=== PATIENT | female | born 2000 | race Caucasian/White ===

== ENCOUNTER 2023-03-13 17:55 | Emergency (ER) | payer MEDICAID ==
[~2023-03-13] VITALS: Ht 160 cm; Wt 77.0 kg
[2023-03-13 18:33] VITALS: BP 136/78; PULSE 94; RESP 17; TEMP 98.3; O2SAT 100
[2023-03-13] MEDS ORDERED: NAPR-56 PO (19:54)
--- NOTE | 2023-03-13 20:00 | NUR ---
I have reviewed and agree with all interventions, assessments performed and documented by jose obrien
== END 2023-03-13 20:03 | disposition home or self-care (01) ==
LOC: ER 17:56
DX: M79.89 Other specified soft tissue disorders (principal); M79.642 Pain in left hand; Z88.5 Allergy status to narcotic agent; Z88.0 Allergy status to penicillin
CPT/HCPCS: 99282

== ENCOUNTER 2023-03-23 21:06 | Emergency (ER) | payer MEDICAID ==
[~2023-03-23] VITALS: Ht 160 cm; Wt 79.5 kg
[~2023-03-23 21:06] MED LIST: NAPR-56 PO
[2023-03-23 22:24] LABS: URINE HCG NEGATIVE (NEG)
[2023-03-23] MEDS ORDERED: CLIN150C2 PO (22:32)
[2023-03-23] MEDS ORDERED: NEOM10DR45 LEFT EAR (22:49)
[2023-03-23] MEDS ORDERED: HYDR-3965 PO (22:49)
[2023-03-23 22:58] VITALS: BP 124/79; PULSE 88; RESP 16; TEMP 98.6; O2SAT 99
== END 2023-03-23 23:00 | disposition home or self-care (01) ==
LOC: ER 21:06
DX: H60.8X2 Other otitis externa, left ear (principal)
CPT/HCPCS: 81025; 99283

== ENCOUNTER 2023-03-31 18:18 | Emergency (ER) | payer MEDICAID ==
[~2023-03-31] VITALS: Ht 160 cm; Wt 68.2 kg
[~2023-03-31 18:18] MED LIST changes: +CLIN150C2 PO; +HYDR-3965 PO; +NEOM10DR45 LEFT EAR
[2023-03-31 19:07] VITALS: BP 125/82; PULSE 86; TEMP 98.5; O2SAT 99
[2023-03-31] MEDS ORDERED: ketorolac trometh. 30mg/ml inj. IM ONE (19:50)
[2023-03-31 20:06] VITALS: RESP 18
[2023-03-31] MEDS ORDERED: CIPR10DR LEFT EAR (20:06)
[2023-03-31] MEDS ORDERED: CLIN150C2 PO (20:06)
[2023-03-31] MEDS ORDERED: IBUP-1984 PO (20:06)
[2023-03-31] MEDS ORDERED: OMEP40CA21 PO (20:13)
== END 2023-03-31 20:41 | disposition home or self-care (01) ==
LOC: ER 18:19
DX: H60.92 Unspecified otitis externa, left ear (principal); Z88.8 Allergy status to other drugs, medicaments and biological substances; Z88.0 Allergy status to penicillin; Z79.2 Long term (current) use of antibiotics; Z79.1 Long term (current) use of non-steroidal anti-inflammatories (NSAID); Z79.899 Other long term (current) drug therapy
CPT/HCPCS: 96372; 99283; J1885

== ENCOUNTER 2023-05-13 18:33 | Emergency (ER) | payer MEDICAID ==
[~2023-05-13] VITALS: Ht 160 cm; Wt 82.3 kg
[~2023-05-13 18:33] MED LIST changes: -CLIN150C2 PO; -HYDR-3965 PO; -NAPR-56 PO
[2023-05-13 18:53] VITALS: BP 127/86; PULSE 99; RESP 17; TEMP 98.8; O2SAT 99
== END 2023-05-14 03:15 | disposition left against medical advice (07) ==
LOC: ER 18:34
DX: R05.9 Cough, unspecified (principal); Z53.21 Procedure and treatment not carried out due to patient leaving prior to being seen by health care provider
CPT/HCPCS: 99281

== ENCOUNTER 2023-06-27 10:10 | Emergency (ER) | payer MEDICAID ==
[~2023-06-27] VITALS: Ht 160 cm; Wt 85.4 kg
[2023-06-27 10:31] VITALS: TEMP 99.5
[2023-06-27 10:48] VITALS: BP 136/83; PULSE 103; RESP 16; O2SAT 98
[2023-06-27 11:22] LABS: STREP A SCREEN NEGATIVE (Neg)
== END 2023-06-27 12:33 | disposition home or self-care (01) ==
LOC: ER 10:10
DX: J02.9 Acute pharyngitis, unspecified (principal); Z88.8 Allergy status to other drugs, medicaments and biological substances; Z79.899 Other long term (current) drug therapy; Z88.5 Allergy status to narcotic agent; Z88.1 Allergy status to other antibiotic agents
CPT/HCPCS: 87081; 87880; 99283

== ENCOUNTER 2023-07-24 16:50 | Emergency (ER) | payer MEDICAID ==
[~2023-07-24] VITALS: Ht 160 cm; Wt 65.9 kg
[2023-07-24 17:14] VITALS: BP 139/75; PULSE 94; RESP 18; O2SAT 99
[2023-07-24] MEDS ORDERED: DIF150T PO (18:08)
[2023-07-24 18:16] VITALS: TEMP 97
== END 2023-07-24 18:17 | disposition home or self-care (01) ==
LOC: ER 16:51
DX: B37.31 Acute candidiasis of vulva and vagina (principal); Z88.5 Allergy status to narcotic agent; Z88.0 Allergy status to penicillin; Z79.899 Other long term (current) drug therapy; Z88.1 Allergy status to other antibiotic agents; Z79.2 Long term (current) use of antibiotics
CPT/HCPCS: 99283

== ENCOUNTER 2023-08-27 16:20 | Emergency (ER) | payer MEDICAID ==
[~2023-08-27] VITALS: Ht 160 cm; Wt 68.2 kg
[2023-08-27 16:48] LABS: BILIRUBIN,URINE NEGATIVE (Neg); CLARITY,URINE SLIGHTLY CLOUDY (Clear); COLOR,URINE YELLOW (Yellow); GLUCOSE, URINE NEGATIVE (Neg); KETONES,URINE NEGATIVE (Neg); LEUKOCYTE ESTERASE ,URINE NEGATIVE (Neg); NITRITES, URINE NEGATIVE (Neg); OCCULT BLOOD,URINE NEGATIVE (Neg); PH,URINE 6.5 (4.8-8.0); PROTEIN,URINE NEGATIVE (Neg); UROBILINOGEN,URINE 0.2 E.U/dL (0.2-1.0)
[2023-08-27 16:51] LABS: UA COLLECTION TYPE CLN CATCH MIDSTREAM
[2023-08-27 16:55] LABS: URINE HCG NEGATIVE (NEG)
[2023-08-27] MEDS ORDERED: ketorolac trometh inj. 60 MG/2 ML VIAL IM ONE (16:55)
[2023-08-27 17:03] LABS: BACTERIA,URINE 1+ /HPF (Neg); RBC,URINE NONE SEEN /HPF (0-2); SQUAMOUS EPITHELIAL CELL,UR MANY /LPF (FEW); WBC,URINE 0-4 /HPF (0-4)
[2023-08-27] MEDS: ketorolac tromethamine 15mg/ml inj. IM ONE (17:33)
[2023-08-27] MEDS: ondansetron 4mg rapidly disintigrating tab PO ONE (17:34)
[2023-08-27 19:08] LABS: RED CELL DISTRIBUTION WIDTH 13.4 % (11.5-14.5)
[2023-08-27 19:10] LABS: BASOPHILS % (AUTO) 0.4 % (0-1); EOSINOPHILS # (AUTO) 0.2 X10'3 (0-0.9); EOSINOPHILS % (AUTO) 1.5 % (0-6); HEMATOCRIT 42.1 % (35.0-45.0); HEMOGLOBIN 13.7 g/dl (12.0-16.0); LYMPHOCYTES # (AUTO) 2.9 X10'3 (1.1-4.8); LYMPHOCYTES % (AUTO) 25.1 % (21-51); MEAN CORPUSCULAR HEMOGLOBIN 28.6 PG (27.0-31.0); MEAN CORPUSCULAR HGB CONC 32.7 g/dL (33.0-36.5); MEAN CORPUSCULAR VOLUME 87.5 FL (78-98); MEAN PLATELET VOLUME 7.6 FL (7.4-10.4); MONOCYTES # (AUTO) 0.8 X10'3 (0-0.9); MONOCYTES % (AUTO) 6.7 % (2-12); NEUTROPHILS # (AUTO) 7.6 X10'3 (1.8-7.7); NEUTROPHILS % (AUTO) 66.3 % (42-75); PLATELET COUNT 367 X10'3 (140-440); RED BLOOD COUNT 4.81 X10'6 (4.20-5.60); WHITE BLOOD COUNT 11.4 X10'3 (4.5-11.0)
[2023-08-27 19:23] LABS: ALANINE AMINOTRANSFERASE 27 U/L (12-78); ALBUMIN/GLOBULIN RATIO 0.9 (1.1-1.5); ALKALINE PHOSPHATASE 99 IU/L (46-116); ANION GAP 8 (8-16); ASPARTATE AMINO TRANSFERASE 18 U/L (10-37); BILIRUBIN,TOTAL 0.3 MG/DL (0.1-1.0); BLOOD UREA NITROGEN 10 MG/DL (7-18); CALCIUM 8.1 MG/DL (8.5-10.1); CHLORIDE 99 MMOL/L (99-107); CREATININE 0.83 MG/DL (0.40-0.90); GLUCOSE 85 MG/DL (70-104); POTASSIUM 3.8 MMOL/L (3.5-5.1); SODIUM 133 MMOL/L (135-145); TOTAL CARBON DIOXIDE 26.1 MMOL/L (24-32); TOTAL PROTEIN 8.7 G/DL (6.4-8.2); eCRCL 88 ML/MIN; eGFR 86 ML/MIN
[2023-08-27] MEDS ORDERED: IBUP-1984 PO (19:35)
[2023-08-27] MEDS ORDERED: CYCL-1 PO (19:35)
[2023-08-27 19:55] VITALS: BP 122/87; PULSE 86; RESP 16; TEMP 98.2; O2SAT 100
== END 2023-08-27 19:58 | disposition home or self-care (01) ==
LOC: ER 16:21
DX: R91.1 Solitary pulmonary nodule (principal); R10.9 Unspecified abdominal pain; Z90.49 Acquired absence of other specified parts of digestive tract; Z98.890 Other specified postprocedural states; Z88.1 Allergy status to other antibiotic agents; Z88.0 Allergy status to penicillin; Z88.5 Allergy status to narcotic agent; Z79.899 Other long term (current) drug therapy; Z79.1 Long term (current) use of non-steroidal anti-inflammatories (NSAID)
CPT/HCPCS: 36415; 74176; 80053; 81001; 81025; 85025; 99284; J1885

== ENCOUNTER 2023-09-01 13:14 | Emergency (ER) | payer MEDICAID ==
[~2023-09-01] VITALS: Ht 160 cm; Wt 90.8 kg
[~2023-09-01 13:14] MED LIST changes: +CYCL-1 PO; +IBUP-1984 PO
[2023-09-01 13:24] VITALS: TEMP 98
[2023-09-01 16:09] LABS: BASOPHILS % (AUTO) 0.4 % (0-1); EOSINOPHILS # (AUTO) 0.2 X10'3 (0-0.9); EOSINOPHILS % (AUTO) 1.8 % (0-6); HEMATOCRIT 39.9 % (35.0-45.0); HEMOGLOBIN 13.1 g/dl (12.0-16.0); MEAN CORPUSCULAR HEMOGLOBIN 28.9 PG (27.0-31.0); MEAN CORPUSCULAR HGB CONC 32.8 g/dL (33.0-36.5); MEAN CORPUSCULAR VOLUME 88.1 FL (78-98); MEAN PLATELET VOLUME 7.4 FL (7.4-10.4); MONOCYTES # (AUTO) 0.7 X10'3 (0-0.9); MONOCYTES % (AUTO) 6.9 % (2-12); NEUTROPHILS # (AUTO) 7.2 X10'3 (1.8-7.7); NEUTROPHILS % (AUTO) 70.9 % (42-75); PLATELET COUNT 322 X10'3 (140-440); RED BLOOD COUNT 4.53 X10'6 (4.20-5.60); RED CELL DISTRIBUTION WIDTH 13.3 % (11.5-14.5); WHITE BLOOD COUNT 10.2 X10'3 (4.5-11.0)
[2023-09-01 16:42] LABS: HCG SERUM QL NEGATIVE
[2023-09-01 16:47] LABS: ALBUMIN 3.6 G/DL (3.4-5.0); ANION GAP 10 (8-16); BLOOD UREA NITROGEN 11 MG/DL (7-18); BUN/CREATININE RATIO 12.4 (10.0-20.0); CALCIUM 8.5 MG/DL (8.5-10.1); CHLORIDE 104 MMOL/L (99-107); CREATININE 0.89 MG/DL (0.40-0.90); GLUCOSE 99 MG/DL (70-104); POTASSIUM 4.4 MMOL/L (3.5-5.1); PRO BRAIN NATRIURETIC PEPTIDE 52 PG/ML (0-125); SODIUM 139 MMOL/L (135-145); TOTAL CARBON DIOXIDE 25.5 MMOL/L (24-32); eCRCL 82 ML/MIN; eGFR 79 ML/MIN
[2023-09-01] MEDS ORDERED: iohexol 350MG/ML 100ml bottle IV ONE (16:54)
[2023-09-01 17:13] VITALS: BP 117/76; PULSE 84; RESP 16; O2SAT 98
== END 2023-09-01 18:45 | disposition home or self-care (01) ==
LOC: ER 13:14
DX: R04.2 Hemoptysis (principal); Z88.0 Allergy status to penicillin; Z88.1 Allergy status to other antibiotic agents; Z88.5 Allergy status to narcotic agent; Z79.899 Other long term (current) drug therapy; Z98.890 Other specified postprocedural states; Z90.49 Acquired absence of other specified parts of digestive tract
CPT/HCPCS: 36415; 71045; 71275; 80048; 83880; 84484; 84703; 85025; 99285; J3490; Q9967

== ENCOUNTER 2023-09-15 16:40 | Emergency (ER) | payer MEDICAID ==
[~2023-09-15] VITALS: Ht 160 cm; Wt 89.3 kg
[~2023-09-15 16:40] MED LIST changes: -IBUP-1984 PO
[2023-09-15 17:24] LABS: BASOPHILS # (AUTO) 0.2 X10'3 (0-0.2); BASOPHILS % (AUTO) 1.4 % (0-1); EOSINOPHILS # (AUTO) 0.1 X10'3 (0-0.9); HEMOGLOBIN 13.1 g/dl (12.0-16.0); LYMPHOCYTES # (AUTO) 2.1 X10'3 (1.1-4.8); LYMPHOCYTES % (AUTO) 18.5 % (21-51); MEAN CORPUSCULAR HEMOGLOBIN 28.6 PG (27.0-31.0); MEAN CORPUSCULAR HGB CONC 32.7 g/dL (33.0-36.5); MEAN CORPUSCULAR VOLUME 87.4 FL (78-98); MEAN PLATELET VOLUME 7.6 FL (7.4-10.4); MONOCYTES # (AUTO) 0.6 X10'3 (0-0.9); MONOCYTES % (AUTO) 5.5 % (2-12); NEUTROPHILS # (AUTO) 8.4 X10'3 (1.8-7.7); NEUTROPHILS % (AUTO) 73.6 % (42-75); PLATELET COUNT 384 X10'3 (140-440); RED BLOOD COUNT 4.57 X10'6 (4.20-5.60); WHITE BLOOD COUNT 11.5 X10'3 (4.5-11.0)
[2023-09-15 17:31] LABS: ALBUMIN 3.9 G/DL (3.4-5.0); ANION GAP 12 (8-16); BLOOD UREA NITROGEN 15 MG/DL (7-18); BUN/CREATININE RATIO 15.3 (10.0-20.0); CALCIUM 8.8 MG/DL (8.5-10.1); CHLORIDE 103 MMOL/L (99-107); CREATININE 0.98 MG/DL (0.40-0.90); GLUCOSE 105 MG/DL (70-104); POTASSIUM 4.1 MMOL/L (3.5-5.1); SODIUM 140 MMOL/L (135-145); TOTAL CARBON DIOXIDE 25.5 MMOL/L (24-32); eCRCL 74 ML/MIN; eGFR 71 ML/MIN
[2023-09-15 17:35] LABS: APTT 25 SECONDS (22-32); INR 1.1 INR; PROTHROMBIN TIME 11.4 SECONDS (9.0-12.0)
[2023-09-15 18:40] VITALS: BP 138/88; PULSE 89; RESP 13; TEMP 97; O2SAT 97
== END 2023-09-15 19:24 | disposition home or self-care (01) ==
LOC: ER 16:41
DX: K92.2 Gastrointestinal hemorrhage, unspecified (principal); Z88.1 Allergy status to other antibiotic agents; Z88.0 Allergy status to penicillin; Z88.5 Allergy status to narcotic agent; Z79.899 Other long term (current) drug therapy; Z79.2 Long term (current) use of antibiotics; Z90.49 Acquired absence of other specified parts of digestive tract; Z98.890 Other specified postprocedural states
CPT/HCPCS: 36415; 71045; 80048; 85025; 85610; 85730; 86885; 86900; 86901; 93005; 99285

== ENCOUNTER 2023-10-23 09:52 | Emergency (ER) | payer MEDICAID ==
[~2023-10-23] VITALS: Ht 160 cm; Wt 91.8 kg
[2023-10-23 10:05] VITALS: BP 131/81; PULSE 96; RESP 16; TEMP 98.5; O2SAT 97
[2023-10-23 13:13] LABS: URINE HCG NEGATIVE (NEG)
[2023-10-23 13:14] LABS: BILIRUBIN,URINE NEGATIVE (Neg); CLARITY,URINE CLOUDY (Clear); COLOR,URINE YELLOW (Yellow); GLUCOSE, URINE NEGATIVE (Neg); KETONES,URINE NEGATIVE (Neg); LEUKOCYTE ESTERASE ,URINE NEGATIVE (Neg); NITRITES, URINE NEGATIVE (Neg); OCCULT BLOOD,URINE NEGATIVE (Neg); PH,URINE 5.5 (4.8-8.0); PROTEIN,URINE NEGATIVE (Neg); UROBILINOGEN,URINE 0.2 E.U/dL (0.2-1.0)
[2023-10-23 13:17] LABS: UA COLLECTION TYPE CLN CATCH MIDSTREAM
[2023-10-23] MEDS ORDERED: ADV50250 IH (13:21)
[2023-10-23] MEDS ORDERED: ALBU8HFA INH (13:36)
[2023-10-23 13:40] LABS: RBC,URINE 0-2 /HPF (0-2); SQUAMOUS EPITHELIAL CELL,UR MODERATE /LPF (FEW); WBC,URINE NONE SEEN /HPF (0-4)
[2023-10-23 13:47] LABS: AMORPHOUS URATES 4+; BACTERIA,URINE 2+ /HPF (Neg)
[2023-10-23] MEDS: fluconazole 100mg tablet PO ONE (14:02)
[2023-10-23] MEDS: albuterol 2.5 MG/3 ML nebule NEB ONE (14:04)
== END 2023-10-23 14:20 | disposition home or self-care (01) ==
LOC: ER 09:53
DX: B37.31 Acute candidiasis of vulva and vagina (principal); J45.901 Unspecified asthma with (acute) exacerbation; Z88.0 Allergy status to penicillin; Z88.1 Allergy status to other antibiotic agents; Z88.5 Allergy status to narcotic agent; Z79.899 Other long term (current) drug therapy; Z98.890 Other specified postprocedural states; Z90.49 Acquired absence of other specified parts of digestive tract
CPT/HCPCS: 81001; 81025; 99283

== ENCOUNTER 2023-11-09 22:08 | Emergency (ER) | payer MEDICAID ==
[~2023-11-09] VITALS: Ht 160 cm; Wt 92.3 kg
[~2023-11-09 22:08] MED LIST changes: +ALBU8HFA INH
[2023-11-09 22:12] VITALS: BP 147/90; PULSE 102; RESP 16; O2SAT 96
[2023-11-09 22:36] LABS: BASOPHILS # (AUTO) 0.1 X10'3 (0-0.2); EOSINOPHILS # (AUTO) 0.2 X10'3 (0-0.9); EOSINOPHILS % (AUTO) 1.6 % (0-6); HEMATOCRIT 39.1 % (35.0-45.0); HEMOGLOBIN 13.2 g/dl (12.0-16.0); LYMPHOCYTES # (AUTO) 3.6 X10'3 (1.1-4.8); LYMPHOCYTES % (AUTO) 28.8 % (21-51); MEAN CORPUSCULAR HEMOGLOBIN 28.9 PG (27.0-31.0); MEAN CORPUSCULAR HGB CONC 33.7 g/dL (33.0-36.5); MEAN CORPUSCULAR VOLUME 85.9 FL (78-98); MEAN PLATELET VOLUME 7.2 FL (7.4-10.4); MONOCYTES # (AUTO) 0.8 X10'3 (0-0.9); MONOCYTES % (AUTO) 6.3 % (2-12); NEUTROPHILS # (AUTO) 7.8 X10'3 (1.8-7.7); NEUTROPHILS % (AUTO) 62.3 % (42-75); PLATELET COUNT 360 X10'3 (140-440); RED BLOOD COUNT 4.56 X10'6 (4.20-5.60); RED CELL DISTRIBUTION WIDTH 12.9 % (11.5-14.5); WHITE BLOOD COUNT 12.5 X10'3 (4.5-11.0)
[2023-11-09 22:37] LABS: BILIRUBIN,URINE NEGATIVE (Neg); CLARITY,URINE SLIGHTLY CLOUDY (Clear); COLOR,URINE YELLOW (Yellow); GLUCOSE, URINE NEGATIVE (Neg); KETONES,URINE NEGATIVE (Neg); LEUKOCYTE ESTERASE ,URINE NEGATIVE (Neg); NITRITES, URINE NEGATIVE (Neg); OCCULT BLOOD,URINE NEGATIVE (Neg); PROTEIN,URINE NEGATIVE (Neg); UROBILINOGEN,URINE 0.2 E.U/dL (0.2-1.0)
[2023-11-09 22:39] LABS: UA COLLECTION TYPE NON-SPECIFIED; URINE HCG NEGATIVE (NEG)
[2023-11-09 22:47] LABS: ANION GAP 10 (8-16); BLOOD UREA NITROGEN 18 MG/DL (7-18); BUN/CREATININE RATIO 21.7 (10.0-20.0); CALCIUM 9.1 MG/DL (8.5-10.1); CHLORIDE 101 MMOL/L (99-107); CREATININE 0.83 MG/DL (0.40-0.90); GLUCOSE 116 MG/DL (70-104); LIPASE 34 U/L (16-77); POTASSIUM 3.8 MMOL/L (3.5-5.1); SODIUM 137 MMOL/L (135-145); eCRCL 88 ML/MIN; eGFR 86 ML/MIN
[2023-11-09 22:59] LABS: MUCUS STRANDS NONE SEEN /LPF (Neg); SQUAMOUS EPITHELIAL CELL,UR MANY /LPF (FEW)
[2023-11-09 23:00] LABS: BACTERIA,URINE FEW /HPF (Neg); RBC,URINE 0-2 /HPF (0-2); WBC,URINE 0-4 /HPF (0-4)
[2023-11-09 23:01] LABS: SPERM FEW /HPF
== END 2023-11-10 02:36 | disposition left against medical advice (07) ==
LOC: ER 22:09
DX: R11.2 Nausea with vomiting, unspecified (principal); R19.7 Diarrhea, unspecified; R10.11 Right upper quadrant pain; Z53.21 Procedure and treatment not carried out due to patient leaving prior to being seen by health care provider
CPT/HCPCS: 36415; 80048; 81001; 81025; 83690; 85025

== ENCOUNTER 2023-12-04 16:26 | Emergency (ER) | payer MEDICAID ==
[~2023-12-04] VITALS: Ht 160 cm; Wt 77.3 kg
[~2023-12-04 16:26] MED LIST changes: -ALBU8HFA INH
[2023-12-04 18:37] VITALS: BP 124/68; PULSE 68; RESP 15; TEMP 98.6; O2SAT 98
== END 2023-12-04 18:39 | disposition home or self-care (01) ==
LOC: ER 16:27
DX: B33.8 Other specified viral diseases (principal); J45.909 Unspecified asthma, uncomplicated; D64.9 Anemia, unspecified; Z88.1 Allergy status to other antibiotic agents; Z88.0 Allergy status to penicillin; Z88.8 Allergy status to other drugs, medicaments and biological substances; Z79.899 Other long term (current) drug therapy; Z90.49 Acquired absence of other specified parts of digestive tract; Z72.89 Other problems related to lifestyle; Z20.822 Contact with and (suspected) exposure to COVID-19
CPT/HCPCS: 36415; 87502; 87503; 87811; 99283